=== PATIENT | female | born 1940 | race Caucasian/White ===

== ENCOUNTER 2017-09-25 08:27 | Outpatient (CLI) | payer MEDICARE, OTHER ==
[2017-09-25 09:08] LABS: #Basophils 0.1 thou/uL (0.0-0.2); #Eosinphils 0.1 thou/uL (0.0-0.7); #Lymphocytes 1.2 thou/uL (1.20-3.40); #Monocytes 0.3 thou/uL (0.11-0.59); #Neutrophils 3.2 thou/uL (1.40-6.50); %Basophils 1.2 % (0.0-1.0); %Eosinophils 1.7 % (0.0-10.0); %Lymphocytes 24.1 % (21.0-51.0); %Monocytes 6.7 % (0.0-10.0); %Neutrophils 66.3 % (42.0-75.0); Hemoglobin 13.8 g/dL (12.0-16.0); Mean Corpuscular HGB CONC 33.2 g/dL (32.0-36.0); Mean Corpuscular Hemoglobin 31.2 pg (27.0-31.0); Mean Corpuscular Volume 93.9 fl (81.0-99.0); Mean Platelet Volume 9.4 fL (7.4-10.4); Platelet Count 232 thou/uL (130-400); RBC Distribution Width 11.4 % (11.5-14.5); Red Blood Cell (RBC) Count 4.42 mill/uL (4.20-5.40); White Blood Cell (WBC) Count 4.8 thou/uL (4.8-10.8)
[2017-09-25 09:36] LABS: ALT (SGPT) 10 U/L (8-55); AST (SGOT) 18 U/L (5-34); Albumin 3.7 g/dL (3.4-4.8); Alkaline Phosphatase 75 U/L (40-150); Anion Gap 15 mmol/L (10-20); BUN (Urea Nitrogen) 12 mg/dL (9.8-20.1); Bilirubin, Total 0.4 mg/dL (0.2-1.2); Calc. Creatinine Clearance 0 mL/min (70-130); Calcium 9.1 mg/dL (7.8-10.44); Carbon Dioxide 26 mmol/L (23-31); Chloride 106 mmol/L (98-107); Estimated GFR-MDRD 62; Globulin 2.6 g/dL (2.4-3.5); Glucose 72 mg/dL (83-110); Potassium 3.6 mmol/L (3.5-5.1); Protein, Total 6.3 g/dL (6.0-8.3); Sodium 143 mmol/L (136-145)
[2017-09-25 09:51] LABS: Thyroid Stimulating Hormone 1.7422 uIU/mL (0.35-4.94)
--- NOTE | 2017-09-25 10:44 | ULT ---
RIGHT UPPER QUADRANT ULTRASOUND: Date: 09/25/17 HISTORY: Abnormal liver function tests. FINDINGS: There is a 1.4 x 1.3 x 1.7 cm anechoic mass in the right lobe of the liver and has a similar 2.0 x 1 .8 x 1.9 cm mass in the left lobe of the liver. No intrahepatic ductal dilatation is seen. No gallst ones, gallbladder wall thickening, or pericholecystic fluid is identified. The common duct measures 3.0 mm in diameter. The pancreas, right kidney, and visualized portions of the aorta and IVC appear normal. No free fluid is seen in Morison's pouch. IMPRESSION: 1. Liver cysts. 2. No evidence of cholelithiasis. POS: [facility]
[2017-09-25 17:06] LABS: Iron 121 ug/dL (50-170); Iron Binding Capacity, Total 204 mcg/dL (265-497)
[2017-09-25 17:25] LABS: Ferritin 74.99 ng/mL (10-291)
[2017-09-25 17:40] LABS: HBCM Index 0.06 S/CO (0-0.79); HBSAg Index 0.17 S/CO (0-0.99); Hep A IgM AB Non-Reactive (NonReactive); Hep A IgM S/CO 0.13 S/CO (0-0.79); Hep B Surf Ag Non-Reactive S/CO (NonReactive); Hep C IgG Ab Non-Reactive (NonReactive); Hep C Index 0.18 S/CO (0-0.79); Hepatitis B Core IGM Abs Non-Reactive (NonReactive)
[2017-09-26 08:34] LABS: Follow-up Chemistry Comp? YES; Follow-up Result - Chemistry REPORT FAXED
== END 2017-09-25 08:28 | disposition home or self-care (01) ==
LOC: MADLAB 08:27
PROVIDERS: ATTEND Pharmacist
DX: R74.8 Abnormal levels of other serum enzymes (principal); K76.89 Other specified diseases of liver
CPT/HCPCS: 36415; 76705; 80053; 80074; 82140; 82607; 82728; 83540; 83550; 84443; 85025

== ENCOUNTER 2018-01-05 09:02 | Outpatient (CLI) | payer MEDICARE ==
[2018-01-05 09:37] LABS: Bilirubin Negative (Negative); Blood, Urine Trace (Negative); Clarity Clear (Clear); Glucose, Urine (Dipstick) Negative (Negative); Leukocyte Negative (Negative); Nitrite Negative (Negative); Protein, Urine (Dipstick) Negative (Neg-Trace); Urobilinogen 0.2 mg/dL (0.2-1.0); pH, Urine 5.5 (5.0-9.0)
[2018-01-05 09:41] LABS: #Eosinphils 0.1 thou/uL (0.0-0.7); #Lymphocytes 1.4 thou/uL (1.20-3.40); #Monocytes 0.5 thou/uL (0.11-0.59); #Neutrophils 4.5 thou/uL (1.40-6.50); %Basophils 0.7 % (0.0-1.0); %Eosinophils 1.5 % (0.0-10.0); %Lymphocytes 20.6 % (21.0-51.0); %Monocytes 8.1 % (0.0-10.0); %Neutrophils 69.1 % (42.0-75.0); Hemoglobin 13.4 g/dL (12.0-16.0); Mean Corpuscular HGB CONC 33.2 g/dL (32.0-36.0); Mean Corpuscular Hemoglobin 31.4 pg (27.0-31.0); Mean Corpuscular Volume 94.7 fl (81.0-99.0); Mean Platelet Volume 9.2 fL (7.4-10.4); Platelet Count 219 thou/uL (130-400); Red Blood Cell (RBC) Count 4.27 mill/uL (4.20-5.40); White Blood Cell (WBC) Count 6.5 thou/uL (4.8-10.8)
== END 2018-01-05 09:03 | disposition home or self-care (01) ==
LOC: MADLAB 09:02
PROVIDERS: ATTEND Pharmacist
DX: N39.0 Urinary tract infection, site not specified (principal)
CPT/HCPCS: 36415; 81003; 85025

== ENCOUNTER 2019-01-05 13:20 | Outpatient (CLI) | payer MEDICARE | END 2019-01-05 13:21 | disposition home or self-care (01) | LOC: MADLAB 13:20 | PROVIDERS: ATTEND Family Medicine | DX: B96.3 Hemophilus influenzae [H. influenzae] as the cause of diseases classified elsewhere (principal) | CPT/HCPCS: 87804 ==

== ENCOUNTER 2020-08-10 11:56 | Emergency (ER) | payer MEDICARE, OTHER | END 2020-08-10 12:50 | LOC: MADERS 11:56 | DX: R06.00 Dyspnea, unspecified (principal); K58.9 Irritable bowel syndrome, unspecified | CPT/HCPCS: 99284 ==